=== PATIENT | male | born 1950 | race Caucasian/White ===

== ENCOUNTER 2017-07-10 13:34 | Emergency (ER) | payer OTHER ==
--- NOTE | 2017-07-10 15:29 | C.PDOC ---
History Of Present Illness 67 y/o male presents to the ER complaining of intermittent left ear pain which has been present for the past 6 months and became worse today. Patient admits to having prior episodes of otitis externa. Patient is also complaining of decreased hearing in the right ear. Patient denies having fever, sore throat, cough, and trauma. Time Seen by Provider: 07/10/17 14:57 Chief Complaint (Nursing): ENT Problem History Per: Patient History/Exam Limitations: None Onset/Duration Of Symptoms: Days Current Symptoms Are (Timing): Still Present Severity: Moderate Past Medical History Reviewed: Historical Data, Nursing Documentation, Vital Signs Vital Signs: Last Vital Signs Temp 98.3 F 07/10/17 15:48 Pulse 72 07/10/17 15:48 Resp 18 07/10/17 15:48 BP 179/80 H 07/10/17 15:48 Pulse Ox 98 07/10/17 19:24 - Medical History PMH: HTN Surgical History: No Surg Hx Family History: States: No Known Family Hx - Social History Hx Alcohol Use: No Hx Substance Use: No Review Of Systems Except As Marked, All Systems Reviewed And Found Negative. Constitutional: Negative for: Fever, Chills ENT: Positive for: Ear Pain (left ear pain). Negative for: Throat Pain Respiratory: Negative for: Cough Physical Exam - Physical Exam Appears: Non-toxic, No Acute Distress Skin: Normal Color, Warm, Dry Head: Atraumatic, Normacephalic Eye(s): bilateral: Normal Inspection Ear(s): Left: Other (TM appears opaque with purulent discharge behind TM, (- ) mastoid tenderness), Right: Normal Nose: Normal Oral Mucosa: Moist Throat: Normal, No Erythema, No Exudate Neck: Supple Chest: Symmetrical Cardiovascular: Rhythm Regular Respiratory: Normal Breath Sounds, No Rales, No Rhonchi, No Wheezing Neurological/Psych: Oriented x3, Normal Speech ED Course And Treatment O2 Sat by Pulse Oximetry: 98 (RA) Pulse Ox Interpretation: Normal Progress Note: Patient treated with Ciprofloxacin PO. Patient has been discharged with prescription for ear drops and abx by mouth. Patient has been instructed to follow up with ENT within 1 week and return to ER if symptoms worsen. Disposition Counseled Patient/Family Regarding: Diagnosis, Need For Followup, Rx Given - Disposition Referrals: Edmundo Spears MD [Staff Provider] - [facility] [Outside] Disposition: HOME/ ROUTINE Disposition Time: 15:45 Condition: STABLE Additional Instructions: FOLLOW UP WITH ENT OR MEDICAL CLINIC WITHIN 1 WEEK USE MEDICATIONS DIRECTED RETURN TO ER IF SYMPTOMS WORSEN Prescriptions: Ciprofloxacin [Cipro] 1 tab PO BID #14 tab Ciprofloxacin/Hydrocortisone [Cipro Hc Otic Suspension] 10 drop OT ONCE #1 drops.susp Instructions: Outer Ear Infection (DC) Forms: [employer] (Iraqi) Print Language: MALAY - Clinical Impression Clinical Impression: Left otitis externa, Hearing loss - Scribe Statement The provider has reviewed the documentation as recorded by the Scribe Alicia Gordon Provider Attestation: All medical record entries made by the Scribe were at my direction and personally dictated by me. I have reviewed the chart and agree that the record accurately reflects my personal performance of the history, physical exam, medical decision making, and the department course for this patient. I have also personally directed, reviewed, and agree with the discharge instructions and disposition.
[2017-07-10 15:49] VITALS: BP 179/80; PULSE 72; RESP 18; TEMP 98.3
[2017-07-10 17:02] VITALS: O2SAT 98
== END 2017-07-10 15:53 | disposition home or self-care (01) ==
LOC: C.ER 13:34
DX: H60.92 Unspecified otitis externa, left ear (principal); H91.91 Unspecified hearing loss, right ear